=== PATIENT | male | born 1980 | race Caucasian/White ===

== ENCOUNTER 2018-12-22 03:39 | Emergency (ER) | payer BC ==
[~2018-12-22] VITALS: Ht 165.1 cm; Wt 77.3 kg
[2018-12-22] MEDS ORDERED: HYDROCODONE (03:46)
--- NOTE | 2018-12-22 03:55 | NUR ---
BLOOD AND URINE WALKED TO LAB
[2018-12-22] MEDS ORDERED: ONDANSETRON 2MG/ML, 2ML ONE (03:56)
[2018-12-22] MEDS ORDERED: HYDROmorphone 1 MG/ML, 1ML VIAL ONE (03:56)
[2018-12-22] MEDS ORDERED: ONDANSETRON 2MG/ML, 2ML IVPush ONE (04:00)
[2018-12-22] MEDS ORDERED: HYDROmorphone 2 MG/ML, 1ML IVPush PRN (04:00)
--- NOTE | 2018-12-22 04:02 | NUR ---
PT TO CT AT THIS TIME.
--- NOTE | 2018-12-22 04:17 | NUR ---
PT REPORTS THAT MEDICATION "TOOK THE EDGE OFF" BUT THAT IT IS NOT GONE. RESTING IN BED W/ FAMILY AT BEDSIDE. SIDE RAILS UP X 2. CALL LIGHT IN REACH. CONTINUOUS PULSE OX.
[2018-12-22 04:28] LABS: ALANINE AMINOTRANSFERASE 45 U/L (12-78); ALBUMIN 4.6 g/dL (3.4-5.0); ANION GAP 9 mmol/L (5-15); CALCIUM 9.3 mg/dL (8.5-10.1); CHLORIDE 104 mmol/L (98-107); CREATININE 1.35 mg/dL (0.7-1.3)
[2018-12-22 04:30] LABS: ALKALINE PHOSPHATASE 75 U/L (45-117); BILIRUBIN,TOTAL 0.7 mg/dL (0.2-1.0); TOTAL PROTEIN 8.2 g/dL (6.4-8.2)
[2018-12-22 04:37] LABS: BASOPHILS # (AUTO) 0.05 x10^3/uL (0-0.1); BASOPHILS % (AUTO) 1 % (0-1); EOSINOPHILS # (AUTO) 0.16 x10^3/uL (0-0.4); EOSINOPHILS % (AUTO) 2 % (1-7); LYMPHOCYTES # (AUTO) 2.16 x10^3/uL (1-3.4); LYMPHOCYTES % (AUTO) 23 % (22-44); MD NO; MEAN CORPUSCULAR HEMOGLOBIN 31.3 pg (27.5-34.5); MEAN CORPUSCULAR HGB CONC 34.3 g/dL (33.2-36.2); MEAN CORPUSCULAR VOLUME 91.3 fL (81-97); MEAN PLATELET VOLUME 8.4 fL (7.4-10.4); MICROSCOPIC AUTO; MONOCYTES # (AUTO) 0.77 x10^3/uL (0.2-0.8); MONOCYTES % (AUTO) 8 % (2-9); NEUTROPHILS # (AUTO) 6.23 x10^3/uL (1.8-6.8); NEUTROPHILS % (AUTO) 67 % (42-75); PLATELET COUNT 320 x10^3/uL (130-400); RED BLOOD COUNT 4.93 x10^6/uL (4.38-5.82)
[2018-12-22 04:45] LABS: CULTURE INDICATED? YES
[2018-12-22] MEDS ORDERED: KETOROLAC 30 MG/1 ML ONE (04:57)
[2018-12-22] MEDS ORDERED: KETOROLAC 30 MG/1 ML IVPush ONE (05:30)
[2018-12-22 05:40] VITALS: BP 120/73
== END 2018-12-22 05:46 | disposition home or self-care (01) ==
LOC: ED 05:30
DX: N20.1 Calculus of ureter (principal); R10.9 Unspecified abdominal pain; R11.2 Nausea with vomiting, unspecified
CPT/HCPCS: 36415; 74176; 80053; 81001; 83690; 85025; 87086; 96374; 96375; 99284; J1170; J1885; J2405